=== PATIENT | female | born 1935 | race Caucasian/White ===

== ENCOUNTER 2017-04-04 11:35 | Emergency (ER) | payer MEDICARE, OTHER ==
[~2017-04-04] VITALS: Ht 139.7 cm; Wt 36.4 kg
[~2017-04-04 11:35] MED LIST: ACET-97 PO; CHOL500011 PO; IBUP1CAP11 PO; LUTE10TA2 PO; MAX1 PO; MELO10CA PO; MV-M1CAP15 PO; OMEP40CA36 PO; OXYB5TAB10 PO
[2017-04-04 11:39] VITALS: BP 144/67; PULSE 74; RESP 16; O2SAT 97
--- NOTE | 2017-04-04 12:12 | ED.REPORT ---
HPI-Extremity Problem Upper Date of Service Apr 04, 2017 ED Provider: Sergey Morales MD An 82 year old female with a history of depression, anxiety and arthritis presents to the ED complaining of a right thumb injury. The pt tripped over a bike rack this morning and fell, cutting the tip of her right thumb. She is unsure whether the finger was cut on the ground or the bike rack. The pt denies other significant trauma and is not up to date on her tetanus. Nursing Notes Stated Complaint: FALL/ CUT ON RIGHT THUMB Chief Complaint: Extremity Trauma Nursing Notes Reviewed: Yes Allergies: Coded Allergies: morphine (Verified Allergy, Severe, Respiratory Distress, 04/04/17) Sulfa (Sulfonamide Antibiotics) (Verified Allergy, Intermediate, RASH, ) Scheduled Cholecalciferol (Vitamin D3) (Vitamin D3) 5,000 Unit Tablet 5,000 UNIT PO DAILY Ibuprofen/Diphenhydramine (Ibuprofen PM) 1 Each Capsule 1 CAPSULE PO HS Lutein (Lutein) 10 Mg Tablet 10 MG PO DAILY Meloxicam, Submicronized (Vivlodex) 10 Mg Capsule 10 MG PO BID Mv-Mn/FA/Vit K/Lycop/Lut/Coq10 (Daily Multivitamin Capsule) 200-100MCG Capsule 1 -3 TABLET PO DAILY [id number] Ethyl Esters-Expunged Drug, Do N (Lovaza-Expunged Drug, Do Not Renew!) 1 Gm Cap 1-3 CAP PO DAILY Omeprazole (Omeprazole) 40 Mg Capsule.dr 40 MG PO BID Oxybutynin Chloride (Oxybutynin Chloride) 5 Mg Tablet 5 MG PO BID Scheduled PRN Acetaminophen (Apap) 500 Mg Tablet 500 MG PO DAILY PRN PRN PRN General Time Seen by MD: 12:11 Chief Complaint Hand injury right Hx Obtained From: Patient Arrived By: Walk-in Onset Occurred: 1 - 4 hours ago Symptom Duration: Since onset Recent Healthcare: No recent hospitalization, Recent doctor visit Similar Sx Previous: No Past Medical History Past Medical History hard of hearing depression anxiety arthritis shingles Past Surgical History double mastectomy breast reconstruction nose reconstruction Smoking History Former Smoker (years ago) Ambulatory Status Independent Review of Systems Review of Systems Note: cut on right thumb Musculoskeletal: Reports: Extremity pain, Denies: Neck pain Skin: Denies Rash Complete sys rev & neg: except as marked. Respiratory: Denies: Non-productive cough, Shortness of breath Cardiovascular: Denies: Chest pain GI: Denies: Abdominal pain, Vomiting Physical Exam Initial Vital Signs Vital Signs (First) Date Time Temp Pulse Resp B/P Pulse Ox O2 Delivery O2 Flow Rate FiO2 04/04/17 11:39 36.9 74 16 144/67 97 Room Air Initial VS: Reviewed General/Constitutional: Awake, Alert Neck: Atraumatic, Supple, Full range of motion Respiratory / Chest: Atraumatic, Breath sounds NL, Breath sounds = bilat, No respiratory distress Cardiovascular: Heart rate NL, Regular rhythm, Heart sounds NL Upper Extremity / MS: Atraumatic, Full range of motion Wrist / Hand: Neurologic intact, Vascular intact superficial laceration of the distal tip of the right thumb no active bleeding no evidence of bone or tendon involvement small 1 cm superficial skin tag Skin: Color NL, Warm, Dry Neurologic: Oriented X3, Speech NL, No motor deficits, No sensory deficits Head / Eyes: Atraumatic, Normocephalic, PERRL, EOMI ENT: Atraumatic, Airway patent, Mucous membranes moist Abdomen: Atraumatic, Soft, Non-tender Back: Atraumatic, Full range of motion Lower Extremity / Pelvis / MS: Atraumatic, Full range of motion Psychiatric: Affect NL, Mood NL Procedures Procedure Notes: Debridement: 13:02 ED physician debrided 1 cm superficial skin pt tolerated well, no complications Re-Eval/Medical Decision Med Decision/Clinical Course 82-year-old female presenting with superficial laceration to right thumb. Status post fall. Laceration is quite superficial. There is no indication for suturing at this time. Hemostasis is achieved. Neurovascular intact. Debridement as above. Irrigated copiously. Bacitracin applied. Tetanus given. Dressing applied. Patient was discharged home with return precautions of any sign symptoms infection any other new or worsening symptoms. Source of Hx: Old records Re-Evaluation/Progress : Time of Eval: 13:02 Patient Status: Condition improved Re-Evaluation/Progress Note: Pt rechecked and wound is debrided. The diagnosis and plan for discharge are discussed. The pt understands and agrees with the plan. All questions are addressed at this time. Counseled Regarding: Diagnosis, Need for follow-up, When/why to return to ED Discharge & Departure Impression: Primary Impression: Laceration Disposition: Home Discharge Condition All VS Reviewed: Yes Condition: Stable Patient Instructions: Laceration (ED) Additional Instructions: Thank you for allowing us to be a part of your care. Keep the wound clean, dry and covered in antibiotic ointment. Wash with soap/water twice daily. Call your primary care physician to arrange a follow up appointment next week for further evaluation. Return to the emergency department if you develop any new or concerning symptoms such as increasing pain, redness, swelling, discharge or fever. Referrals: Elvis España MD (PCP) Scribe Attestation Portions of this note were transcribed by Lorena Dawn. I, Dr. Morales personally performed the history, physical exam and medical decision-making; I reviewed and confirmed the accuracy of the information in the transcribed note. copies to: Elvis España MD, Ben M MD Apr 04, 2017 12:12 LORENA DAWN Apr 04, 2017 12:26
[2017-04-04] MEDS ORDERED: TdaP Vaccine 0.5 mL Inj IM ONE (13:00)
[2017-04-04] MEDS ORDERED: Bacitracin Ointment Packet TOPICAL ONE (13:10)
[2017-04-04 13:49] VITALS: BP 136/81; PULSE 78; RESP 18; O2SAT 99
== END 2017-04-04 13:50 | disposition home or self-care (01) ==
LOC: SED 11:35
DX: S61.011A Laceration without foreign body of right thumb without damage to nail, initial encounter (principal); F41.8 Other specified anxiety disorders; W01.198A Fall on same level from slipping, tripping and stumbling with subsequent striking against other object, initial encounter; Y93.9 Activity, unspecified; Y92.9 Unspecified place or not applicable; Y99.9 Unspecified external cause status; Z23 Encounter for immunization; Z87.891 Personal history of nicotine dependence; Z88.2 Allergy status to sulfonamides; Z88.5 Allergy status to narcotic agent

== ENCOUNTER 2017-05-02 15:34 | Emergency (ER) | payer MEDICARE, OTHER ==
[~2017-05-02] VITALS: Ht 139.7 cm; Wt 36.4 kg
[2017-05-02 15:38] VITALS: BP 108/69; PULSE 74; RESP 16; O2SAT 98
--- NOTE | 2017-05-02 16:11 | ED.REPORT ---
HPI-Bite: Human/Animal Date of Service May 02, 2017 ED Provider: Andrea Corbett MD Pt is an 82 y/o female presenting to the ED due to cat scratches which occurred today. The patient brought her cat to the vet and it scratched her over the right arm and did not bite her. It is an indoor house cat with up to date vaccinations. She denies fever, swelling, redness. TDAP up to date. PCP: Bal Nursing Notes Stated Complaint: CAT SCRATCH/BITES Chief Complaint: Extremity Trauma Nursing Notes Reviewed: Yes Allergies: Coded Allergies: morphine (Verified Allergy, Severe, Respiratory Distress, 04/04/17) Sulfa (Sulfonamide Antibiotics) (Verified Allergy, Intermediate, RASH, ) Scheduled Cholecalciferol (Vitamin D3) (Vitamin D3) 5,000 Unit Tablet 5,000 UNIT PO DAILY Ibuprofen/Diphenhydramine (Ibuprofen PM) 1 Each Capsule 1 CAPSULE PO HS Lutein (Lutein) 10 Mg Tablet 10 MG PO DAILY Meloxicam, Submicronized (Vivlodex) 10 Mg Capsule 10 MG PO BID Mv-Mn/FA/Vit K/Lycop/Lut/Coq10 (Daily Multivitamin Capsule) 200-100MCG Capsule 1 -3 TABLET PO DAILY Mcmul-4-Phip Ethyl Esters-Expunged Drug, Do N (Lovaza-Expunged Drug, Do Not Renew!) 1 Gm Cap 1-3 CAP PO DAILY Omeprazole (Omeprazole) 40 Mg Capsule.dr 40 MG PO BID Oxybutynin Chloride (Oxybutynin Chloride) 5 Mg Tablet 5 MG PO BID Scheduled PRN Acetaminophen (Apap) 500 Mg Tablet 500 MG PO DAILY PRN PRN PRN General Time Seen by MD: 15:48 Chief Complaint Cat scratch Hx Obtained From: Patient Arrived By: Walk-in Onset Occurred: 1 - 4 hours ago Symptom Duration: 1 - 15 minutes Severity: Current: No pain currently Severity: Maximum: No pain Similar Sx Previous: No Past Medical History Past Medical History hard of hearing depression anxiety arthritis shingles Past Surgical History double mastectomy breast reconstruction nose reconstruction Smoking History Former Smoker Ambulatory Status Independent Review of Systems Constitutional: Denies: Chills, Fever Skin: Denies Rash, Denies Swelling Complete sys rev & neg: except as marked. Physical Exam Vital Signs Vital Signs (First) Date Time Temp Pulse Resp B/P Pulse Ox O2 Delivery O2 Flow Rate FiO2 05/02/17 15:38 37.1 74 16 108/69 98 Room Air Initial VS: Reviewed, Vital signs normal Head / Eyes: Atraumatic, Normocephalic ENT: Mucous membranes moist Neck: Full range of motion Respiratory: No respiratory distress Abdomen / GI: No distention Neurologic: Alert, Oriented, Nonfocal Psychiatric: Mood/affect normal, Behavior normal, Normal thought content General/Constitutional: Awake, Alert, No acute distress, Well appearing, Cooperative, Not toxic appearing Skin: No rash, Warm, Dry, Intact, No swelling Upper Extremity / MS: Full range of motion, No swelling, Non-tender, No erythema, No deformity, Neurologic intact, Vascular intact, No ligamentous injury, Tendon function NL, No compartment syndrome, No circumferential injury, No clubbing/cyanosis, No edema Right upper extremity numerous small superficial scratches Re-Eval/Medical Decision Old records Counseled Regarding: Diagnosis, Need for follow-up, When/why to return to ED Discharge & Departure Impression: Primary Impression: Cat scratch of right forearm Encounter type: initial encounter Qualified Code: S50.811A - Abrasion of right forearm, initial encounter Disposition: Home Discharge Condition All VS Reviewed: Yes Condition: Stable Patient Instructions: Acute Wound Care (GEN) Additional Instructions: keep wounds clean and covered. apply antibiotic ointment daily until healed. follow up with primary care as needed. Return to ED for swelling or redness at wound. Referrals: Evlis España MD (PCP) Scribe Attestation Portions of this note were transcribed by Anastacio Fox. I, Dr. Corbett, personally performed the history, physical exam and medical decision-making; I reviewed and confirmed the accuracy of the information in the transcribed note. copies to: Elvis España MD, Donald L MD May 02, 2017 16:11 ANASTACIO FOX May 02, 2017 16:18
[2017-05-02 16:34] VITALS: BP 108/69; PULSE 74; RESP 16; O2SAT 98
== END 2017-05-02 16:35 | disposition home or self-care (01) ==
LOC: SED 15:34
DX: S50.811A Abrasion of right forearm, initial encounter (principal); W55.03XA Scratched by cat, initial encounter; Y93.89 Activity, other specified; Y92.89 Other specified places as the place of occurrence of the external cause; Y99.8 Other external cause status; F41.8 Other specified anxiety disorders; Z87.891 Personal history of nicotine dependence; Z88.2 Allergy status to sulfonamides; Z88.5 Allergy status to narcotic agent